=== PATIENT | female | born 1990 | race Caucasian/White ===

== ENCOUNTER 2017-06-13 18:08 | Emergency (ER) | payer SELFPAY ==
[~2017-06-13 18:08] MED LIST: LEVO750T31 PO; VENTOLIN HFA18 GM INH
[2017-06-13 18:10] VITALS: BP 155/88
[2017-06-13] MEDS ORDERED: TRAM-48 PO (18:52)
[2017-06-13] MEDS ORDERED: AMOX500T PO (18:52)
--- NOTE | 2017-06-13 18:53 | PHYS DOC ---
Past Medical History Past Medical History: No Pertinent History, Other Additional Past Medical Histor: DENTAL ISSUES Past Surgical History: Tonsillectomy, Other Additional Past Surgical Histo: DENTAL/HOARSENESS, R. KNEE Alcohol Use: Sober Drug Use: None Adult General Chief Complaint Chief Complaint: DENTAL PROBLEM HPI HPI Patient is a 26 year old female with no significant medical history who presents with mild right lower gum dental pain that began yesterday after she broke her tooth eating kettle corn chips, she states she has a dentist that is willing to extract the tooth but the dentist wants her to pay $180 upfront which patient does not have right now. Patient denies any fever or trismus. Review of Systems Review of Systems Constitutional: Denies fever or chills [] HENT: Dental pain Musculoskeletal: Denies back pain or joint pain [] Integument: Denies rash or skin lesions [] Neurologic: Denies headache, focal weakness or sensory changes [] Allergies Allergies Allergies Coded Allergies Type Severity Reaction Last Updated Verified No Known Drug Allergies 10/28/15 No Physical Exam Physical Exam Constitutional: Well developed, well nourished, no acute distress, non-toxic appearance. [] HENT: Normocephalic, atraumatic, bilateral external ears normal, oropharynx moist, no oral exudates, nose normal. [] Tooth #29 is broken. Tooth #30 is missing. Scattered dental carries no gum erythema Skin: Warm, dry, no erythema, no rash. [] Back: No tenderness, no CVA tenderness. [] Extremities: No tenderness, no cyanosis, no clubbing, ROM intact, no edema. [] Neurologic: Alert and oriented X 3, normal motor function, normal sensory function, no focal deficits noted. [] Psychologic: Affect normal, judgement normal, mood normal. [] Current Patient Data Vital Signs Vital Signs Date Time Temp Pulse Resp B/P (MAP) Pulse Ox O2 Delivery O2 Flow Rate FiO2 06/13/17 18:10 98.6 100 18 95 Room Air 98.6 EKG EKG [] Radiology/Procedures Radiology/Procedures [] Course & Med Decision Making Course & Med Decision Making Pertinent Labs and Imaging studies reviewed. (See chart for details) Patient has a broken tooth from dental caries. Discharged with amoxicillin and Ultram. She is to follow-up with her own dentist as soon as she can. Mike Disclaimer Mike Disclaimer This electronic medical record was generated, in whole or in part, using a voice recognition dictation system. Departure Departure Impression: Primary Impression: Dentalgia Additional Impression: Dental caries Disposition: 01 HOME, SELF-CARE Condition: STABLE Referrals: MELVIN PARSONS COUPLING MACHINE OPERATOR (PCP) follow up with your dentist as soon as you can Patient Instructions: Dental Caries, Dental Pain Additional Instructions: You were seen for dental caries and dental pain. Follow-up with your dentist as soon as you can. Scripts Tramadol Hcl (ULTRAM) 50 Mg Tablet 1 TAB PO Q6HRS, #30 TAB Prov: ANGELA RODRIGUEZ APRN 06/13/17 Amoxicillin (AMOXICILLIN) 500 Mg Tablet 1 TAB PO TID, #30 TAB Prov: ANGELA RODRIGUEZ APRN 06/13/17 Problem Qualifiers ANGELA RODRIGUEZ APRN Jun 13, 2017 18:53
== END 2017-06-13 18:55 | disposition home or self-care (01) ==
LOC: ER 18:08
DX: K02.9 Dental caries, unspecified (principal)
CPT/HCPCS: 99283

== ENCOUNTER 2019-06-06 16:57 | Emergency (ER) | payer OTHER ==
[~2019-06-06] VITALS: Ht 165.1 cm; Wt 117.9 kg
[~2019-06-06 16:57] MED LIST changes: +AMOX500T PO; +TRAM-48 PO
[2019-06-06 17:10] VITALS: BP 165/94
[2019-06-06] MEDS ORDERED: IBUP-1007 PO (17:17)
[2019-06-06] MEDS ORDERED: PENI500T PO (17:17)
[2019-06-06] MEDS ORDERED: HYDR-3164 PO (17:17)
--- NOTE | 2019-06-06 17:21 | PHYS DOC ---
Past Medical History Past Medical History: No Pertinent History, Other Additional Past Medical Histor: DENTAL ISSUES Past Surgical History: Tonsillectomy, Other Additional Past Surgical Histo: DENTAL/HOARSENESS, R. KNEE Alcohol Use: Sober Drug Use: None Adult General Chief Complaint Chief Complaint: DENTAL PROBLEM HPI HPI Patient is a 28 year old female who presents with 3 years of dental pain. Patient states she has several dental cavities. Patient states she has a right upper tooth that has been broken for years and is causing her increased pain. Patient states she has not gone to a dentist but she needs to go to a dentist. States the sharp shooting, pain is in her right upper jaw and radiates to her right ear and up into her right forehead. Patient rates her pain a 10 out of 10. Review of Systems Review of Systems Constitutional: Denies fever or chills [] Eyes: Denies change in visual acuity, redness, or eye pain [] HENT: Denies nasal congestion or sore throat. Dental pain [] Respiratory: Denies cough or shortness of breath [] Cardiovascular: No additional information not addressed in HPI [] GI: Denies abdominal pain, nausea, vomiting, bloody stools or diarrhea [] : Denies dysuria or hematuria [] Musculoskeletal: Denies back pain or joint pain [] Integument: Denies rash or skin lesions [] Neurologic: Denies headache, focal weakness or sensory changes [] Endocrine: Denies polyuria or polydipsia [] All other systems were reviewed and found to be within normal limits, except as documented in this note. Allergies Allergies Allergies Coded Allergies Type Severity Reaction Last Updated Verified No Known Drug Allergies 10/28/15 No Physical Exam Physical Exam Constitutional: Well developed, well nourished, no acute distress, non-toxic appearance. [] HENT: Normocephalic, atraumatic, bilateral external ears normal, oropharynx moist, no oral exudates, nose normal. Right upper molar broken and black. Gum line is reddened and slight swelling. [] Eyes: PERRLA, EOMI, conjunctiva normal, no discharge. [] Neck: Normal range of motion, no tenderness, supple, no stridor. [] Cardiovascular:Heart rate regular rhythm, no murmur [] Lungs & Thorax: Bilateral breath sounds clear to auscultation [] Abdomen: Bowel sounds normal, soft, no tenderness, no masses, no pulsatile masses. [] Skin: Warm, dry, no erythema, no rash. [] Back: No tenderness, no CVA tenderness. [] Extremities: No tenderness, no cyanosis, no clubbing, ROM intact, no edema. [] Neurologic: Alert and oriented X 3, normal motor function, normal sensory function, no focal deficits noted. [] Psychologic: Affect normal, judgement normal, mood normal. [] Current Patient Data Vital Signs Vital Signs Date Time Temp Pulse Resp B/P (MAP) Pulse Ox O2 Delivery O2 Flow Rate FiO2 06/06/19 17:10 98.2 90 18 165/94 (117) 95 Room Air 98.2 EKG EKG [] Radiology/Procedures Radiology/Procedures [] Course & Med Decision Making Course & Med Decision Making Patient is a 28 year old female who presents with 3 years of dental pain. Patient states she has several dental cavities. Patient states she has a right upper tooth that has been broken for years and is causing her increased pain. Patient states she has not gone to a dentist but she needs to go to a dentist. States the sharp shooting, pain is in her right upper jaw and radiates to her right ear and up into her right forehead. Patient rates her pain a 10 out of 10. Patient has a right upper molar that is broken off and black. Gumline is reddened and slightly inflamed. There is no facial swelling but the patient states she thinks her right side of her face is starting to swell. Patient denies fevers. Vital signs are within normal limits. Speaks in full clear sentences. Denies any nausea, vomiting, fever. Patient states she does have sensitivity in that tooth. Patient is given dental resources, antibiotic and pain medication. Patient to follow up with a dentist as soon as possible. Dragon Disclaimer Dragon Disclaimer This electronic medical record was generated, in whole or in part, using a voice recognition dictation system. Departure Departure Impression: Primary Impression: Dental abscess Additional Impression: Dentalgia Disposition: 01 HOME, SELF-CARE Condition: STABLE Referrals: MELVIN PARSONS [employer] ROLL TENDER (PCP) Patient Instructions: Dental Abscess, Dental Caries Additional Instructions: follow up with a dentist tomorrow if possible. Take medications as prescribed. Scripts Penicillin V Potassium (PENICILLIN V POTASSIUM) 500 Mg Tablet 1 TAB PO TID, #30 TAB Prov: KAREN HEARD APRN 06/06/19 Ibuprofen (IBUPROFEN) 600 Mg Tablet 600 MG PO PRN Q6HRS PRN for INFLAMMATION, #20 TAB Prov: KAREN HEARD APRN 06/06/19 Hydrocodone/Apap 5-325 (NORCO 5-325 TABLET) 1 Each Tablet 1 TAB PO PRN Q6HRS PRN for PAIN, #10 TAB 0 Refills Prov: KAREN HEARD APRN 06/06/19 Problem Qualifiers KAREN HEARD APRN Jun 06, 2019 17:21
== END 2019-06-06 17:39 | disposition home or self-care (01) ==
LOC: ER 16:57
DX: K04.7 Periapical abscess without sinus (principal); K02.9 Dental caries, unspecified; Z90.89 Acquired absence of other organs
CPT/HCPCS: 99283

== ENCOUNTER 2020-12-02 21:03 | Emergency (ER) | payer OTHER ==
[~2020-12-02] VITALS: Ht 165.1 cm; Wt 136.4 kg
[~2020-12-02 21:03] MED LIST changes: +HYDR-3164 PO; +IBUP-1007 PO; +PENI500T PO
[2020-12-02] MEDS ORDERED: AMOX500C PO (21:40)
[2020-12-02] MEDS ORDERED: SULF1TAB24 PO (21:40)
--- NOTE | 2020-12-02 21:41 | PHYS DOC ---
Past Medical History Past Medical History: No Pertinent History, Other Additional Past Medical Histor: DENTAL ISSUES Past Surgical History: Tonsillectomy, Other Additional Past Surgical Histo: DENTAL/HOARSENESS, R. KNEE Smoking Status: Current Every Day Smoker Alcohol Use: Sober Drug Use: None Adult General Chief Complaint Chief Complaint: EYE PROBLEMS HPI HPI Patient is a 30 year old female without any significant past medical history now presents emergency department complaining of redness and swelling around the right eye. Patient dates otherwise patient had worsening irritation and redness. Patient she noted what appeared to be a pimple over the right periorbital region that she attempted to express this and since then noted new redness and swelling around the eye. Denies any vision changes, blurriness, diplopia, fever or chills. Denies any history of similar symptom Review of Systems Review of Systems Constitutional: Denies fever or chills [] Eyes: Denies change in visual acuity, redness, or eye pain [] HENT: Denies nasal congestion or sore throat [] Respiratory: Denies cough or shortness of breath [] Cardiovascular: No additional information not addressed in HPI [] GI: Denies abdominal pain, nausea, vomiting, bloody stools or diarrhea [] : Denies dysuria or hematuria [] Musculoskeletal: Denies back pain or joint pain [] Integument: Denies rash or skin lesions [] Neurologic: Denies headache, focal weakness or sensory changes [] Endocrine: Denies polyuria or polydipsia [] All other systems were reviewed and found to be within normal limits, except as documented in this note. Allergies Allergies Allergies Coded Allergies Type Severity Reaction Last Updated Verified No Known Drug Allergies 10/28/15 No Physical Exam Physical Exam Constitutional: Well developed, well nourished, no acute distress, non-toxic appearance. [] HENT: Normocephalic, atraumatic, bilateral external ears normal, oropharynx moist, no oral exudates, nose normal. [] Eyes: PERRLA, EOMI, conjunctiva normal, no discharge. R periorbital redness and mild tendenress, no eye involvement Neck: Normal range of motion, no tenderness, supple, no stridor. [] Cardiovascular:Heart rate regular rhythm, no murmur [] Lungs & Thorax: Bilateral breath sounds clear to auscultation [] Abdomen: Bowel sounds normal, soft, no tenderness, no masses, no pulsatile masses. [] Skin: Warm, dry, no erythema, no rash. [] Back: No tenderness, no CVA tenderness. [] Extremities: No tenderness, no cyanosis, no clubbing, ROM intact, no edema. [] Neurologic: Alert and oriented X 3, normal motor function, normal sensory function, no focal deficits noted. [] Psychologic: Affect normal, judgement normal, mood normal. [] EKG EKG [] Radiology/Procedures Radiology/Procedures [] Course & Med Decision Making Course & Med Decision Making Pertinent Labs and Imaging studies reviewed. (See chart for details) 30F presenting with signs and symptoms consistent with a right periorbital cellulitis. No concern for orbital cellulitis at this time. Will discharge home with course of antibiotics and pain control Dragon Disclaimer Dragon Disclaimer This electronic medical record was generated, in whole or in part, using a voice recognition dictation system. Departure Departure Impression: Primary Impression: Preseptal cellulitis of right eye Disposition: 01 DC HOME SELF CARE/HOMELESS Condition: GOOD Referrals: NO PCP (PCP) Patient Instructions: Periorbital Cellulitis Additional Instructions: EMERGENCY DEPARTMENT GENERAL DISCHARGE INSTRUCTIONS Thank you for coming to [facility] Emergency Department (ED) today and trusting us with you care. We trust that you had a positive experience in our Emergency Department. If you wish to speak to the department management, you may call the Director at [phone]. YOUR FOLLOW UP INSTRUCTIONS ARE FOLLOWS: 1. Do you have a private Doctor? If you do not have a private doctor, please ask for a resource list of physicians or clinics that may be able to assist you with follow up care. 2. The Emergency Physicain has interpreted your x-rays. The X-Ray specialist will also review them. If there is a change in the findings, you will be notified in 48 hours when at all possible. 3. A lab test or culture has been done, your results will be reviewed and you will be notified if you need a change in treatment. ADDITIONAL INSTRUCTIONS AND INFORMATION: 1. Your care today has been supervised by a physician who is specially trained in emergency care. Many problems require more than one evaluation for a complete diagnosis and treatment. We recommend that you schedule your follow up appointment as recommended to ensure complete treatment of you illness or injury. If you are unable to obtain follow up care and continue to have a problem, or if your condition worsens, we recommend that you return to the ED. 2. We are not able to safely determine your condition over the phone nor are we able to give sound medical advice over the phone. For these safety reasons, if you call for medical advice we will ask you to come to the ED for further evaluation. 3. If you have any questions regarding these discharge instructions please call the ED at [phone]. SAFETY INFORMATION: In the interest of safety, wellness, and injury prevention; we encourage you to wear your sealbelt, if you smoke; quite smoking, and we encourage family to use a protective helmet for bicycling and other sporting events that present an increased risk for head injury. IF YOUR SYMPTOMS WORSEN OR NEW SYMPTOMS DEVELOP, OR YOU HAVE CONCERNS ABOUT YOUR CONDITION; OR IF YOUR CONDITION WORSENS WHILE YOU ARE WAITING FOR YOUR FOLLOW UP APPOINTMENT; EITHER CONTACT YOUR PRIMARY CARE DOCTOR, THE PHYSICIAN WHOSE NAME AND NUMBER YOU WERE GIVEN, OR RETURN TO THE ED IMMEDIATELY. Scripts Sulfamethoxazole/Trimethoprim (BACTRIM DS TABLET) 1 Each Tablet 1 TAB PO BID for infection for 7 Days, #14 TAB Prov: GAIL BELLA MD 12/02/20 Amoxicillin (AMOXICILLIN) 500 Mg Capsule 1 CAP PO Q8HRS for infection for 7 Days, #21 CAP Prov: GAIL BELLA MD 12/02/20 GAIL BELLA MD Dec 02, 2020 21:40
[2020-12-02] MEDS ORDERED: SMZ/TMP 800/160MG TABLET. PO ONE (21:45)
[2020-12-02] MEDS ORDERED: ACETAMINOPHEN 500 MG TABLET PO ONE (21:45)
[2020-12-02] MEDS ORDERED: IBUPROFEN 400 MG TABLET. PO ONE (21:45)
[2020-12-02] MEDS ORDERED: AMOXICILLIN 250 MG CAPSULE. PO ONE (21:45)
[2020-12-02 22:05] VITALS: BP 175/90
== END 2020-12-02 22:05 | disposition home or self-care (01) ==
LOC: ER 21:03
DX: L03.213 Periorbital cellulitis (principal); F17.200 Nicotine dependence, unspecified, uncomplicated
CPT/HCPCS: 99284

== ENCOUNTER 2021-05-07 21:46 | Emergency (ER) | payer SELFPAY ==
[~2021-05-07] VITALS: Ht 165.1 cm; Wt 136.0 kg
[~2021-05-07 21:46] MED LIST changes: +AMOX500C PO; +SULF1TAB24 PO
[2021-05-07 21:48] VITALS: BP 171/93
[2021-05-07 22:37] LABS: CLARITY,URINE TURBID
[2021-05-07 22:40] LABS: COLOR,URINE BROWN
[2021-05-07 22:43] LABS: BACTERIA,URINE MANY /HPF (0-FEW); RBC,URINE TNTC /HPF (0-2); WBC,URINE TNTC /HPF (0-4)
[2021-05-07] MEDS ORDERED: CIPROFLOXACIN HCL 250 MG TABLET. PO ONE (22:45)
[2021-05-07] MEDS ORDERED: PHENAZOPYRIDINE 200 MG TABLET. PO ONE (22:45)
--- NOTE | 2021-05-07 22:45 | PHYS DOC ---
Past Medical History Past Medical History: Asthma, Other Additional Past Medical Histor: DENTAL ISSUES Past Surgical History: Tonsillectomy, Other Additional Past Surgical Histo: DENTAL/HOARSENESS, R. KNEE Smoking Status: Current Every Day Smoker Alcohol Use: Sober Drug Use: None General Adult EDM: Chief Complaint: PAIN WITH URINATION HPI: HPI: Patient is a 30 year old male who present to ER with pain with urination and blood in her urine started tonight. Patient denies any abdominal pain, no nausea vomiting, no fever. Patient denies any flank pain, denies any chest pain or trouble breathing. Patient denies any vaginal bleeding or discharge. Review of Systems: Review of Systems: Constitutional: Denies fever or chills. [] Eyes: Denies change in visual acuity. [] HENT: Denies nasal congestion or sore throat. [] Respiratory: Denies cough or shortness of breath. [] Cardiovascular: Denies chest pain or edema. [] GI: Denies abdominal pain, nausea, vomiting, bloody stools or diarrhea. [] : Positive for dysuria and hematuria Musculoskeletal: Denies back pain or joint pain. [] Integument: Denies rash. [] Neurologic: Denies headache, focal weakness or sensory changes. [] Endocrine: Denies polyuria or polydipsia. [] Lymphatic: Denies swollen glands. [] Psychiatric: Denies depression or anxiety. [] Heart Score: C/O Chest Pain: N/A Risk Factors: Risk Factors: DM, Current or recent (<one month) smoker, HTN, HLP, family history of CAD, obesity. Risk Scores: Score 0 - 3: 2.5% MACE over next 6 weeks - Discharge Home Score 4 - 6: 20.3% MACE over next 6 weeks - Admit for Clinical Observation Score 7 - 10: 72.7% MACE over next 6 weeks - Early Invasive Strategies Allergies: Allergies: Allergies Coded Allergies Type Severity Reaction Last Updated Verified No Known Drug Allergies 10/28/15 No Physical Exam: PE: Constitutional: Well developed, well nourished, no acute distress, non-toxic appearance. [] HENT: Normocephalic, atraumatic, bilateral external ears normal, oropharynx moist, no oral exudates, nose normal. [] Eyes: PERRLA, EOMI, conjunctiva normal, no discharge. [] Neck: Normal range of motion, no tenderness, supple, no stridor. [] Cardiovascular:Heart rate regular rhythm, no murmur [] Lungs & Thorax: Bilateral breath sounds clear to auscultation [] Abdomen: Bowel sounds normal, soft, no tenderness, no masses, no pulsatile masses. [] Skin: Warm, dry, no erythema, no rash. [] Back: No tenderness, no CVA tenderness. [] Extremities: No tenderness, no cyanosis, no clubbing, ROM intact, no edema. [] Neurologic: Alert and oriented X 3, normal motor function, normal sensory function, no focal deficits noted. [] Psychologic: Affect normal, judgement normal, mood normal. [] Current Patient Data: Labs: Laboratory Tests Test 05/07/21 22:30 05/07/21 22:34 Urine Collection Type Unknown Urine Color Brown Urine Clarity Turbid Urine pH Urine Specific [place] 1.025 Urine Protein mg/dL Urine Glucose (UA) mg/dL Urine Ketones (Stick) mg/dL Urine Blood Urine Nitrite Urine Bilirubin Urine Urobilinogen Dipstick mg/dL Urine Leukocyte Esterase Urine RBC Tntc /HPF Urine WBC Tntc /HPF Urine Squamous Epithelial Cells Few /LPF Urine Bacteria Many /HPF Urine Mucus Slight /LPF Bedside Urine HCG, Qualitative Hcg negative Current Medications Medications (Trade) Dose Ordered Sig/Julio Route PRN Reason Start Time Stop Time Status Last Admin Dose Admin Ciprofloxacin (Cipro) 500 mg 1X ONCE PO 05/07/21 22:45 05/07/21 22:46 UNV Phenazopyridine HCl (Pyridium) 200 mg 1X ONCE PO 05/07/21 22:45 05/07/21 22:46 UNV Laboratory Tests Test 05/07/21 22:34 POC Urine HCG, Qualitative Hcg negative (Negative) Vital Signs: Vital Signs Date Time Temp Pulse Resp B/P (MAP) Pulse Ox O2 Delivery O2 Flow Rate FiO2 05/07/21 21:48 97.9 82 18 171/93 (119) 96 Room Air 97.9 EKG: EKG: [] Radiology/Procedures: Radiology/Procedures: [] Course & Med Decision Making: Course & Med Decision Making Pertinent Labs and Imaging studies reviewed. (See chart for details) Patient is a 30-year-old female who present to ER due to pain with urination and frequency. Patient found to have UTI, she will be discharged home with antibiotic. Patient was amenable to plan of care. Mike Disclaimer: Mike Disclaimer: This electronic medical record was generated, in whole or in part, using a voice recognition dictation system. Departure Departure Impression: Primary Impression: UTI (urinary tract infection) Disposition: HOME / SELF CARE / HOMELESS Condition: STABLE Referrals: NO PCP (PCP) Please follow up with [facility] this week. [address], [address] [place] [address] Phone number: [phone] Patient Instructions: Urinary Tract Infection Additional Instructions: Thank you for visiting our Emergency Department. We appreciate you trusting us with your care. If any additional problems come up don't hesitate to return to visit us. Please follow up with your primary care provider so they can plan add itional care if needed and know about the problem that you had. If symptoms worsen come back to the Emergency Department. Any concerning symptoms that start such as chest pain, shortness of air, weakness or numbness on one side of the body, running high fevers or any other concerning symptoms return to the ER. Scripts Phenazopyridine Hcl (PYRIDIUM) 200 Mg Tablet 1 TAB PO TID for urinary discomfort for 2 Days, #6 TAB 0 Refills Prov: JJ RUEDA DO 05/07/21 Ciprofloxacin Hcl (CIPRO) 500 Mg Tablet 1 TAB PO BID for 7 Days, #14 TAB 0 Refills Prov: JJ RUEDA DO 05/07/21 JJ RUEDA DO May 07, 2021 22:45
[2021-05-07] MEDS ORDERED: PHEN-318 PO (22:51)
[2021-05-07] MEDS ORDERED: CIPR500T94 PO (22:51)
== END 2021-05-07 23:01 | disposition home or self-care (01) ==
LOC: ER 21:46
DX: N39.0 Urinary tract infection, site not specified (principal); J45.909 Unspecified asthma, uncomplicated; F17.200 Nicotine dependence, unspecified, uncomplicated
CPT/HCPCS: 81001; 81025; 87086; 99283